=== PATIENT | female | born 1980 | race Caucasian/White ===

== ENCOUNTER → 2025-02-06 | Outpatient (CLI) | payer MEDICAID, SELFPAY ==
--- NOTE | 2025-02-06 14:15 | XR_ITS ---
Examination: Screening digital mammography, bilateral Computer aided detection 3-D breast Tomosynthesis, bilateral Date and time of exam: February 06, 2025 1403 hours, compared to mammograms dating to October 31, 2019 Indication: Screening Technique: Nonmagnified MLO, CC views of the breasts to been obtained, reconstructed from 3-D Tomosynthesis images. R2 computer aided detection program utilized for evaluation of suspicious masses and/or abnormal calcifications. 3-D Tomosynthesis images obtained. Findings: Scattered areas of fibroglandular density Benign calcifications. No interval suspicious masses Impression: BI-RADS category II: Benign Findings. Recommend 1 year follow-up mammogram.
== END | disposition home or self-care (01) ==
PROVIDERS: PCP Nurse Practitioner Family; Referring Provider Nurse Practitioner Family; Visit Provider Nurse Practitioner Family
DX: Z12.31 Encounter for screening mammogram for malignant neoplasm of breast (principal); R92.323 Mammographic fibroglandular density, bilateral breasts; R92.1 Mammographic calcification found on diagnostic imaging of breast
CPT/HCPCS: 77063; 77067

== ENCOUNTER → 2025-04-04 | Outpatient (CLI) | payer MEDICAID, SELFPAY ==
--- NOTE | 2025-04-04 | XR_ITS ---
EXAMINATION: PA lateral chest 2 views TECHNIQUE: Upright PA lateral chest 2 views Date and time: April 04, 2025, 0024 hours INDICATION: Preop FINDINGS: Normal heart size Lungs are clear. Intact osseous structures IMPRESSION: No active disease
== END | disposition home or self-care (01) ==
PROVIDERS: PCP Nurse Practitioner Family; Referring Provider Nurse Practitioner Family; Visit Provider Nurse Practitioner Family
DX: M67.431 Ganglion, right wrist (principal); Z01.818 Encounter for other preprocedural examination
CPT/HCPCS: 71046

== ENCOUNTER 2025-04-11 05:30 | Day surgery (SDC) | payer MEDICAID, SELFPAY ==
[2025-04-10 14:13] VITALS: BMI 40.4
--- NOTE | 2025-04-10 14:31 | EKG_ITS ---
[facility] Test Date: 2025-04-10 Pat Name: KAYCE DAMON Department: Room: - Gender: Female Wharf Hand: CLARENCE : 1980 Requested By: Nils Becerra Order Number: [id number] Reading MD: Nils Becerra Measurements Intervals [place] Rate: 64 P: 53 KS: 194 QRS: 38 QRSD: 111 T: 51 QT: 403 QTc: 418 Interpretive Statements SINUS RHYTHM MODERATE INTRAVENTRICULAR CONDUCTION DELAY [110+ ms QRS DURATION] No previous ECG available for comparison /[id number]/[id number]
--- NOTE | 2025-04-10 15:22 | SUR.PREOP ---
Lab was unable to get blood after 4 tries, will try on arrival, Dr Eubanks notified.
[2025-04-11] VITALS (7 sets, daily range): BP systolic 98–118; BP diastolic 65–80; PULSE 85–107; RESP 14–15; TEMP 36.2–36.5; O2SAT 97–99; BMI 41.4
[2025-04-11 06:43] LABS: Basophils # (Auto) 0.1 Thou/mm3 (0.0-0.2); Basophils % (Auto) 1 % (0-2.5); Eosinophils # (Auto) 0.1 Thou/mm3 (0.0-0.5); Eosinophils % (Auto) 1 % (0-10); Hematocrit 37.8 % (36.0-46.0); Hemoglobin 12.3 g/dL (12.0-16.0); Immature Granulocytes Auto 0.02 Thou/mm3 (0.00-0.00); Lymphocytes # (Auto) 2.8 Thou/mm3 (1.0-4.8); Lymphocytes % (Auto) 31 % (10-50); Mean Corpuscular HGB Conc 32.5 g/dl (31.0-37.0); Mean Corpuscular Hemoglobin 28.3 pg (25.0-35.0); Mean Corpuscular Volume 87 fL (80-100); Monocytes # (Auto) 1.1 Thou/mm3 (0.0-0.8); Monocytes % (Auto) 13 % (0-12); Neutrophils # (Auto) 4.9 Thou/mm3 (1.8-7.7); Neutrophils % (Auto) 55 % (37-80); Nucleated Red Blood Cell # 0.00 Thou/mm3 (0.00-0.00); Nucleated Red Blood Cell % 0 /100 WBC (0); Platelet Count 242 Thou/mm3 (140-440); RDW Standard Deviation 46.5 fL (36.4-46.3); Red Blood Count 4.35 Miln/mm3 (4.00-5.20); White Blood Count 8.9 Thou/mm3 (3.6-11.0)
[2025-04-11 07:08] LABS: Alanine Aminotransferase 20 U/L (10-49); Albumin, Serum 3.9 gm/dL (3.5-5.0); Albumin/Globulin Ratio 1.9 (1.2-2.2); Alkaline Phosphatase 44 U/L (46-116); Anion Gap 8 (7-16); Aspartate Amino Transferase 19 U/L (0-34); BUN/Creatinine Ratio 9 Ratio (12-20); Bilirubin,Total 0.3 mg/dL (0.3-1.2); Blood Urea Nitrogen 7 mg/dL (9-23); Calcium 8.7 mg/dL (8.3-10.6); Calcium (Corrected) 8.8 mg/dL (8.5-10.1); Carbon Dioxide 25.4 mMol/L (20.0-31.0); Chloride 110 mMol/L (98-107); Creatinine (Component) 0.8 mg/dL (0.6-1.3); Estimated Creatinine Clearance 90.0 mL/min (>60); Globulin 2.1 gm/dL (2.3-3.5); Glucose 95 mg/dL (74-106); Osmolality,Calculated 282 (275-295); Potassium 3.7 mMol/L (3.4-5.1); Sodium 143 mMol/L (136-145); Total Protein 6.0 gm/dL (5.7-8.2); eGFR > 60 See Note
[2025-04-11 07:12] LABS: INR 1.1 (0.9-1.3); Partial Thromboplastin Time 27.1 Seconds (22.0-36.0); Prothrombin Time 11.2 Seconds (9.0-12.2)
--- NOTE | 2025-04-11 07:27 | SUR.PREOP ---
Patient expressed gratitude for prayer before their procedure.
--- NOTE | 2025-04-11 08:35 | ESOP_ITS ---
Date of Procedure 04/11/25 Pre Op Diagnosis Ganglionic cyst flexor aspect right wrist Post Op Diagnosis Same Procedure Excision of the cyst Findings Refer dictation Procedure Description Patient was given general anesthesia. Once satisfactory anesthesia achieved a tourniquet was placed on right upper arm. Following that the part was thoro ughly prepped and draped. After using Esmarch the tourniquet pressure was raised to 250 mmHg The cyst was situated over the radial aspect at the distal end of the right wrist crease. I skin in incision made over the most prominent part of the cyst extending proximally and distally. It was placed vertically. The length of the incision was about 2 inches long. Deeper dissection was carried out. Care was taken not to damage the radial artery. One of the branch of the radial artery was sitting on the cyst. That branch was tied. The cyst was then excised and sent for histopathological examination. At this time the tourniquet pressure was released. No no bleeding was present. Wound was irrigated with antibiotic solution every 4 to 5 minutes Closure was done in layers. The soft tissue was closed with the help of 2-0 Vicryl in an interrupted fashion. The skin was closed with 3-0 Prolene in about 6 mL of quarter percent Marcaine was injected at the skin incision site. After cleaning the wound with hydrogen peroxide solution sterile dressing was applied. Anesthesia GETA Pathology / specimen None Estimated Blood Loss 2 Surgeon Nils Queen MD Surgical Staff Operation Date: 04/11/25 07:30 <No data on this case meets the specified criteria>
--- NOTE | 2025-04-11 08:38 | SUR.PHASEII ---
0838: Pt. AAOx4, vitals stable, breathing unlabored, no complaint of pain or nausea, dressing to right hand CDI, no active bleed noted, pt. able to wiggle fingers to right hand, cap refill to right hand less than 3 seconds, right brachial pulse strong and regular, report received from James BEARDEN and Kris HATFIELD.
--- NOTE | 2025-04-11 08:57 | ESHP_ITS ---
RE: KAYCE DAMON : 1980 DATE OF ADMISSION: 04/11/2025 The patient came to my office on 04/10/2025 for detailed preop history and physical examination. HISTORY OF PRESENTING COMPLAINT: The patient has got mass over the flexor aspect of the right wrist. It is quite big in size. It is tender and interferes with routine daily activities. Clinically, it is ganglion cyst. PAST MEDICAL HISTORY: The patient has history of high blood pressure. No history of diabetes mellitus, asthma, seizures, chest pain or myocardial infarction. PAST SURGICAL HISTORY: Nil known. DRUG HISTORY: The patient is on: 1. Carvedilol. 2. Aspirin. 3. Gabapentin. 4. Simvastatin. 5. Trazodone. 6. Zepbound. ALLERGIES: NIL KNOWN. FAMILY HISTORY AND SOCIAL HISTORY: The patient denies smoking and drinking, is not working. PHYSICAL EXAMINATION: GENERAL: Rather normal built lady. VITAL SIGNS: Pulse is 84 per minute, blood pressure is 102/76. NECK: Soft, supple; no mass felt. Trachea is centrally placed. CARDIOVASCULAR SYSTEM: First and second heart sounds normal. No murmur heard. RESPIRATORY SYSTEM: Bilateral vesicular breath sounds. Chest is clear. ABDOMEN: Soft, supple; no mass felt. Bowel sounds present. BREASTS: Not indicated in this case. The patient is advised to see the family physician for regular examination. RIGHT WRIST: Revealed mass of about 1 inch in diameter over the distal flexor aspect. It is tender, mobile and cystic in appearance. Clinically, it is ganglion cyst. Since it is bothering her and is quite big; therefore, surgical excision was discussed and advised. Detailed discussion took place. Risks, benefits and limitations were explained. Risks with anesthesia includes but not limited to reaction to anesthetic agents, cardiac arrest or rarely it might be fatal. Risks with surgery include infection and if that happens, the patient may need further surgical procedure. There is a risk of recurrence. Beside that since it is sitting pretty close to radial artery, there is a possibility of radial artery damage as well. If that happens, one may have to go and tie the radial artery and the patient is fully aware of that. Accordingly, surgery is booked for 04/11/2025. Surgical clearance was already obtained. DT: 08:43:42 TT: 08:56:00 Ref: [id number] - TID: [id number]
--- NOTE | 2025-04-11 09:30 | SUR.PHASEII ---
0930: Pt. AAOx4, vitals stable, breathing unlabored, no complaint of pain or nausea, dressing to right wrist CDI, no active bleed noted, right brachial pulses strong and regular, cap refill to right hand less than 3 seconds, pt. able to wiggle fingers to right hand, pt. tolerated sips of water well, gave discharge instructions to the pt. and her ride, both verbalized understanding and had no further quesitons. Pt. left with all personal belongings.
== END 2025-04-11 09:30 | disposition home or self-care (01) ==
PROVIDERS: PCP Nurse Practitioner Family; Referring Provider Orthopaedic Surgery; Visit Provider Orthopaedic Surgery
PROC: (CPT 25111; principal; 2025-04-11 07:30)
DX: M67.431 Ganglion, right wrist (principal); Z01.810 Encounter for preprocedural cardiovascular examination
CPT/HCPCS: 25111; 36415; 80053; 85025; 85610; 85730; 93005; A4649; J0690; J1580; J2250; J2704; J3010; J3490; J0665; J1596